=== PATIENT | female | born 1985 | race Caucasian/White ===

== ENCOUNTER 2019-10-18 22:09 | Inpatient (IN) | payer BC, OTHER ==
[~2019-10-18] VITALS: Ht 172.7 cm; Wt 123.3 kg
[2019-10-18] MEDS: IV NORMAL SALINE 1,000ML 1,000 ML IV SCH (00:03)
[2019-10-18] MEDS ORDERED: IV NORMAL SALINE 50ML 50 ML ONE (23:05)
[2019-10-18] MEDS ORDERED: cefTRIAXone SODIUM 1 GM VIAL ONE (23:05)
[2019-10-19] VITALS (19 sets, daily range): BP systolic 89–160; BP diastolic 58–98
[2019-10-19] MEDS ORDERED: KETOROLAC 30 MG/ML VIAL. ONE
[2019-10-19] MEDS ORDERED: KETOROLAC 30 MG/ML VIAL. IVP ONE
[2019-10-19 00:28] LABS: BASO % 0 % (0-3); EOS % 0 % (0-3); HEMATOCRIT 38.2 % (36.0-47.0); HEMOGLOBIN 12.6 g/dL (12.0-15.5); LYMPH # 1.1 x10^3/uL (1.0-4.8); LYMPH % 8 % (24-48); MEAN CORPUSCULAR HEMOGLOBIN 30 pg (25-35); MEAN CORPUSCULAR HGB CONC 33 g/dL (31-37); MEAN CORPUSCULAR VOLUME 91 fL (79-100); MONO % 7 % (0-9); NEUT # 11.4 x10^3uL (1.8-7.7); NEUT % 84 % (31-73); PLATELET COUNT 188 x10^3/uL (140-400); RED CELL DISTRIBUTION WIDTH 12.8 % (11.5-14.5); WHITE BLOOD COUNT 13.5 x10^3/uL (4.0-11.0)
[2019-10-19 00:41] LABS: BILIRUBIN,URINE NEG (NEG); CALCIUM 8.8 mg/dL (8.5-10.1); CLARITY,URINE CLOUDY; COLOR,URINE BROWN; GFR 63.1; GLUCOSE,URINE NEG (NEG); POTASSIUM 3.7 mmol/L (3.5-5.1)
[2019-10-19 00:42] LABS: BACTERIA,URINE FEW /HPF (0-FEW); NITRITE,URINE POS (NEG); RBC,URINE TNTC /HPF (0-2); SQUAMOUS EPITHELIAL CELL,UR FEW /LPF
[2019-10-19 00:52] LABS: ALBUMIN 3.1 g/dL (3.4-5.0); DIRECT BILIRUBIN 0.4 mg/dL (0.0-0.2); TOTAL BILIRUBIN 0.9 mg/dL (0.2-1.0); TOTAL PROTEIN 7.9 g/dL (6.4-8.2)
[2019-10-19] MEDS ORDERED: LIDOCAINE (700MG/PATCH) PATCH. TD ONE (01:00)
[2019-10-19] MEDS ORDERED: CYCLOBENZAPRINE 10 MG TABLET. PO ONE (01:00)
[2019-10-19] MEDS: IV NORMAL SALINE 1,000ML 1,000 ML IV SCH ×4 (01:10→12:23)
--- NOTE | 2019-10-19 01:32 | PHYS DOC ---
Past History Past Medical History: No Pertinent History Past Surgical History: Other Additional Past Surgical Histo: right ovarian mass removal Alcohol Use: None General Adult EDM: Chief Complaint: ABDOMINAL PAIN HPI: HPI: 34 yo F who denies PMH presents to the ed with c/o right flank pain, painful urination, blood in urine, fever and body aches stating, "I don't feel good." Left [facility] ER AMA because "I don't want to be admitted there." Was tested for covid at [place]-denies any cough or sore throat to me. ROS: Denies associated headache, neck stiffness, diaphoresis, blurry vision, chest pain or pressure, dyspnea, hemoptysis, diarrhea, abdominal pain, vaginal bleeding, leg swelling, rash, diarrhea. Current Medications: Current Meds: Current Medications Medications (Trade) Dose Ordered Sig/Joanie Start Time Stop Time Status Last Admin Dose Admin Ceftriaxone Sodium 1 gm/ Sodium Chloride 50 ml @ 100 mls/hr 1X ONCE 10/18/19 23:00 10/18/19 23:29 DC 10/18/19 00:03 100 MLS/HR Ceftriaxone Sodium (Rocephin) 1 gm STK-MED ONCE 10/18/19 23:05 10/18/19 23:05 DC Cyclobenzaprine HCl (Flexeril) 5 mg 1X ONCE 10/19/19 01:00 10/19/19 01:01 DC 10/19/19 01:09 5 MG Ketorolac Tromethamine (Toradol 30mg Vial) 30 mg STK-MED ONCE 10/19/19 00:00 10/19/19 00:01 DC Lidocaine (Lidoderm) 1 patch 1X ONCE 10/19/19 01:00 10/19/19 01:01 DC 10/19/19 01:09 1 PATCH Sodium Chloride 50 ml @ As Directed STK-MED ONCE 10/18/19 23:05 10/18/19 23:05 DC Allergies: Allergies: Allergies Coded Allergies Type Severity Reaction Last Updated Verified No Known Drug Allergies 10/18/19 No Physical Exam: PE: Constitutional: febrile, uncomfortable appearing, febrile, obese HENT: Normocephalic, atraumatic, Eyes: EOMI, conjunctiva normal, no discharge. [] Neck: Normal range of motion, no tenderness, supple, no stridor. [] Cardiovascular: tachycardic, no murmur [] Lungs & Thorax: Bilateral breath sounds clear to auscultation [] Abdomen: Bowel sounds normal, soft, no tenderness, no masses, no pulsatile masses. [] Skin: Warm, dry, no erythema, no rash. [] Back: No tenderness, +right CVA tenderness. [] Extremities: No tenderness, no cyanosis, no clubbing, ROM intact, no edema. [] sclerosis to both UEs-suspect IVDU Neurologic: Alert and oriented X 3, normal motor function, normal sensory function, no focal deficits noted. [] Psychologic: Affect normal, judgement normal, mood normal. [] Current Patient Data: Labs: Laboratory Tests Test 10/18/19 23:55 White Blood Count 13.5 x10^3/uL (4.0-11.0) H Red Blood Count 4.20 x10^6/uL (3.50-5.40) Hemoglobin 12.6 g/dL (12.0-15.5) Hematocrit 38.2 % (36.0-47.0) Mean Corpuscular Volume 91 fL (79-100) Mean Corpuscular Hemoglobin 30 pg (25-35) Mean Corpuscular Hemoglobin Concent 33 g/dL (31-37) Red Cell Distribution Width 12.8 % (11.5-14.5) Platelet Count 188 x10^3/uL (140-400) Neutrophils (%) (Auto) 84 % (31-73) H Lymphocytes (%) (Auto) 8 % (24-48) L Monocytes (%) (Auto) 7 % (0-9) Eosinophils (%) (Auto) 0 % (0-3) Basophils (%) (Auto) 0 % (0-3) Neutrophils # (Auto) 11.4 x10^3uL (1.8-7.7) H Lymphocytes # (Auto) 1.1 x10^3/uL (1.0-4.8) Monocytes # (Auto) 1.0 x10^3/uL (0.0-1.1) Eosinophils # (Auto) 0.0 x10^3/uL (0.0-0.7) Basophils # (Auto) 0.0 x10^3/uL (0.0-0.2) Urine Collection Type Unknown Urine Color Brown Urine Clarity Cloudy Urine pH 5.5 Urine Specific [place] 1.025 Urine Protein >100 mg/dl (NEG-TRACE) Urine Glucose (UA) Neg mg/dL (NEG) Urine Ketones (Stick) >=160 mg/dL (NEG) Urine Blood Large (NEG) Urine Nitrite Pos (NEG) Urine Bilirubin Neg (NEG) Urine Urobilinogen Dipstick 1.0 mg/dL (0.2 mg/dL) Urine Leukocyte Esterase Neg (NEG) Urine RBC Tntc /HPF (0-2) Urine WBC 5-10 /HPF (0-4) Urine Squamous Epithelial Cells Few /LPF Urine Bacteria Few /HPF (0-FEW) Sodium Level 129 mmol/L (136-145) L Potassium Level 3.7 mmol/L (3.5-5.1) Chloride Level 94 mmol/L (98-107) L Carbon Dioxide Level 23 mmol/L (21-32) Anion Gap 12 (6-14) Blood Urea Nitrogen 10 mg/dL (7-20) Creatinine 1.0 mg/dL (0.6-1.0) Estimated GFR (Cockcroft-Gault) 63.1 Glucose Level 91 mg/dL (70-99) Lactic Acid Level 1.0 mmol/L (0.4-2.0) Calcium Level 8.8 mg/dL (8.5-10.1) Total Bilirubin 0.9 mg/dL (0.2-1.0) Direct Bilirubin 0.4 mg/dL (0.0-0.2) H Aspartate Amino Transferase (AST) 21 U/L (15-37) Alanine Aminotransferase (ALT) 27 U/L (14-59) Alkaline Phosphatase 74 U/L (46-116) Troponin I Quantitative < 0.017 ng/mL (0-0.055) Total Protein 7.9 g/dL (6.4-8.2) Albumin 3.1 g/dL (3.4-5.0) L Lipase 34 U/L (73-393) L Ethyl Alcohol Level < 10 mg/dL (0-10) Vital Signs: Vital Signs Date Time Temp Pulse Resp B/P (MAP) Pulse Ox O2 Delivery O2 Flow Rate FiO2 10/18/19 22:23 103.0 124 28 133/ 92 Room Air EKG: EKG: [] Radiology/Procedures: Radiology/Procedures: [] Course & Med Decision Making: Course & Med Decision Making Pertinent Labs and Imaging studies reviewed. (See chart for details) Presents to the ED tachycardic and febrile with nitrate positive UTI, concern for sepsis secondary to UTI. Labs show leukocytosis of 13.5, sodium of 129. I reviewed patient images that were performed at [facility] earlier today. Patient had a transvaginal pelvic ultrasound that showed a left ovarian complex cyst, intact blood flow. Patient had a CT abdomen pelvis with contrast that shows mild biliary dilatation of 12 mm. Urine drug screen was positive for marijuana, opioids and amphetamine methamphetamines. Patient states she did not want to be admitted at [facility] but agrees with admission for [place]. Pt started on abx, ivfs and analgesia, is stable at time of admission. I have spoken with the patient and/or caregivers. I have explained the patient's condition, diagnosis and treatment plan based on the information available to me at this time. I have answered the patient's and/or caregivers questions and answered any concerns. The patient and/or caregivers have as good an understanding of the patient's diagnosis, condition and treatment plan as can be expected at this point. The patient has been stabilized within the capability of the emergency department. The patient will be transported for further care and management or will be moved to an observation or inpatient service. I have communicated with the staff or medical practitioner taking over this patient's care. Arlen Disclaimer: Arlen Disclaimer: This electronic medical record was generated, in whole or in part, using a voice recognition dictation system. Departure Departure: Impression: Primary Impression: Sepsis secondary to UTI Additional Impression: Polysubstance abuse Disposition: ADMITTED INPATIENT Admitting Physician: Ryley Britt Condition: STABLE Referrals: PCP,NO (PCP) Justification of Admission: Justification of Admission: Justification of Admission Dx: Yes Sepsis: Infection KIKA BRAGA DO Oct 19, 2019 01:32
[2019-10-19 01:56] LABS: BARBITURATES NEG (NEG); BENZODIAZEPINES NEG (NEG); CANNABINOIDS POS (NEG); COCAINE NEG (NEG); METHADONE NEG (NEG); OPIATES POS (NEG); PHENCYCLIDINE NEG (NEG)
[2019-10-19 01:58] LABS: AMPHETAMINE/METHAMPHETAMINE POS (NEG)
[2019-10-19] MEDS ORDERED: ONDANSETRON PF 4 MG/2 ML VIAL. IVP PRN (02:00)
[2019-10-19] MEDS ORDERED: NO HOME MEDICATIONS (03:14)
--- NOTE | 2019-10-19 03:34 | NUR ---
The patient, KATHERINE SMITH, 34 y/o, F admitted by DORENE ALVARADO MD, was given written information regarding hospital policies, unit procedures and contact persons. Valuables were checked and noted. PT's purse and clothing placed in outer closet. PT given her cell phone in room. PT placed on telemetry, changed gown to appropriate gown. PT states she has been having increasing pain that started in the abdomen and progressed to her low back. PT has chronic back pain and states she uses IV heroin and meth for pain control. Per PT, last used one week ago. PT had presented to [facility] yesterday for same problem, swabbed for COVID and left AMA. Reviewed with PT her PMH, PSH, SH, FH and medications. PT states she has no PMH and takes no medications. PT's only surgery was a RT ovarian masses excision. PT has no children and lives with her mother. PT was anxious and depressed at assessment but cooperative.
[2019-10-19] MEDS: MORPHINE SULFATE 2 MG/ML DISP.SYRIN. IVP PRN ×6 (03:53→22:51)
[2019-10-19] MEDS ORDERED: ACETAMINOPHEN 500 MG TABLET PO ONE (08:05)
[2019-10-19] MEDS: ACETAMINOPHEN 500 MG TABLET PO PRN ×2 (08:10→22:55)
--- NOTE | 2019-10-19 08:12 | NUR ---
IP: patient PUI for COVID-19, requires contact and airborne precautions.
--- NOTE | 2019-10-19 08:30 | NUR ---
On arrival to pt room pt is lethargic and barely able to speak full sentences. PT temp 103, HR 125. Fluids infusing. PT given tylenol, zofran, morphine. Dr Britt notified of change in pt status on his arrival to unit. Juani TIRADO
--- NOTE | 2019-10-19 08:48 | HP ---
ADMIT DATE: 10/19/2019 ATTENDING PHYSICIAN: Dr. Alvarado. CHIEF COMPLAINT: Abdominal pain. HISTORY OF PRESENT ILLNESS: The patient is a 34-year-old white female who was admitted to the ED, she had a diagnosis of pyelonephritis. Her symptoms were right flank pain, painful urination, blood in the urine, fevers and body aches saying "I don't feel good." She was seen in the [facility] the same day. She left the ER AMA because she did not want to be admitted there. She was tested for COVID at [facility]. She denied any cough or COVID symptoms. I do not have those records. I am in the process of tracking them down. Also, cultures were done at [facility] and there are no reports. They are at [facility]. She is admitted then early this morning through our ED, she was going to stay here. She was admitted with urinary tract infection and sepsis syndrome. Her blood pressure was adequate. She appeared a bit on the dry side. Fluids and antibiotics were administered. She was given Rocephin along with fluids in the ED. She has no recorded drug allergies. PAST MEDICAL HISTORY: She had a right ovarian cyst removed. SOCIAL HISTORY: She is a smoker. She does not use any alcohol. There is a substance abuse as her urine tested positive for opiates, methamphetamine and tetrahydrocannabinol. FAMILY HISTORY: Mom is age 60. She has a form of brain tumor, whether this is benign or malignant she is unclear. Father also with a diagnosis of spinal tumor. He is alive at age 62. ALLERGIES: She has no recorded drug allergies. REVIEW OF SYSTEMS: Significant for the myalgias, headache, neck stiffness, diaphoresis, minimal dry and nonproductive cough, blurry vision, chest pain after cough, some hemoptysis, diarrhea, abdominal pain, vaginal bleeding, leg swelling and the diarrhea. PHYSICAL EXAMINATION: GENERAL: When I saw her, this is a young female who does not appear comfortable. INITIAL VITAL SIGNS: In the ED showed a blood pressure of 104/65, her pulse is 104 and regular, temperature max was 103.0 degrees Fahrenheit, oxygen saturation 95% on room air. HEENT: Head is without trauma. Pupils are reactive. Sclerae nonicteric. Oropharynx is clear. NECK: Supple, no bruits identified. LUNGS: Coarse rhonchi in the upper airways. CARDIOVASCULAR: Showed distant heart tones. No gallops. Peripheral pulses are palpable and full. ABDOMEN: Soft, obese, protuberant. Minimal guarding. There is no rebound tenderness. No masses palpated. Bowel sounds were hypoactive. EXTREMITIES: Show no cyanosis or edema. NEUROLOGIC: Focally intact. Affect was flat. SKIN: Warm and dry. PERTINENT LABORATORY STUDIES: From our ED, hemoglobin was 12.6 g/dL with white count of 13,500. Sodium 129 mEq, potassium 3.7. The creatinine is 1.0 mg/dL. Transaminases and liver function were normal. Cardiac enzymes negative and the lactic acid level was 1.0, once again cultures from [facility] ED were done, but I do not have any reports yet. ASSESSMENT: 1. A 34-year-old female with pyelonephritis. 2. Sepsis syndrome. 3. Polysubstance abuse. 4. History of ovarian resection. 5. Dehydration. PLAN: 1. Admit to our inpatient unit. 2. Intravenous antibiotics pending cultures. 3. Pain and nausea control. 4. Gentle IV hydration. 5. Serial chemistries. 6. Diet as tolerated. 7. I shall repeat her chest x-ray today. DORENE ALVARADO MD DR: NICK/laisha JOB#: [id number] / [id number]
--- NOTE | 2019-10-19 09:35 | NUR ---
pt reported trying to get up to go to the bathroom and unable to being able to make it the bathroom and voided on the floor. Educated patient that she must call for assistance when getting up and bed alarm placed on. PT temp coming down, however, pt still increased work of breathing and profuse perspiration. PT has ice pack behind neck and temp turned down in room. 2nd IV placed 22g in R hand. PT has wheezes all lung with coarse breath sound Anteriorly. DR Britt notified. Juani RN
[2019-10-19] MEDS ORDERED: ALBUTEROL SULFATE 8GM INHALER. INH PRN (10:00)
--- NOTE | 2019-10-19 10:13 | RAD ---
CHEST AP ONLY Clinical Indication: Reason: wheezing shortness of breath / Spl. Instructions: / History: Comparison: Acute abdominal series, February 15, 2011. Findings: The cardiomediastinal silhouette is normal. Lungs are clear. There is no pneumothorax. No pleural effusion is appreciated. No acute bone abnormality. IMPRESSION: No acute cardiopulmonary process. Electronically signed by: Farhad Gilbert MD (10/19/2019 10:11 AM) [id number]
--- NOTE | 2019-10-19 10:36 | NUR ---
pt hypotensive Dr Britt Notified he said to bolus a liter. PT still lethargic. BGzhane RN
[2019-10-19] MEDS ORDERED: IV NORMAL SALINE 1,000ML 1,000 ML IV ONE (10:45)
--- NOTE | 2019-10-19 11:12 | NUR ---
PT continues to be lethargic and profusely sweating even though temp 99.9. Bp continues to be hypotensive even after saline bolus. Dr Notified of condition. Dr Britt did talk about possible transfer to ICU for closer monitoring. Juani TIRADO
[2019-10-19] MEDS: CYCLOBENZAPRINE 10 MG TABLET. PO PRN ×2 (11:50→19:41)
--- NOTE | 2019-10-19 15:16 | NUR ---
PT becoming agitated and asking for pain medication stating my "fucking back hurts", when trying to question pt further about radiation of pain she just keeping saying she needs pain medications. PT bp still in the 90's map low 70s. Juani RN
[2019-10-19] MEDS ORDERED: VANCOMYCIN 1 GM in IV NORMAL SALINE 250ML 250 ML IV SCH (17:30)
--- NOTE | 2019-10-19 18:00 | NUR ---
PT drowsy and was able to ambulate, however still having pain. PT having lots of pain in her chest at times and back. PT moved to ICU for closes monitoring. Juani TIRADO
[2019-10-19] MEDS ORDERED: VANCOMYCIN PER PHARMACY MC PRN (18:15)
[2019-10-19] MEDS: PIPERACILLIN/TAZOBACTAM 4.5 GM in IV NORMAL SALINE 50ML 50 ML IV SCH ×2 (18:56→23:38)
[2019-10-19] MEDS ORDERED: VANCOMYCIN 2 GM in IV NORMAL SALINE 500ML 500 ML IV ONE (19:00)
[2019-10-19] MEDS ORDERED: LORazepam 1 MG TABLET PO PRN (19:30)
[2019-10-19] MEDS: LORazepam 1 MG TABLET PO PRN (19:41)
--- NOTE | 2019-10-19 20:45 | NUR ---
Pharmacy Vancomycin Dosing Note S:Consulted to monitor and dose vancomycin started 10/19/19. O:KATHERINE SMITH is a 34 year old F with Sepsis Pyelonephritis, . Height: 5 feet, 8 inches Weight: 119.0 kg [place] Body Weight: 63.90 Adjusted Body Weight: 85.94 Dosing Weight: Actual Other Antibiotics: ZOSYN 4.5GM IV Q6HRS LABS: Last BUN: 10 Last Creatinine: 1.0 Creatinine Clearance: 106.53 Last WBC: 13.5 Vancomycin Dosing: Loading Dose: 2000 mg x1 Dosing Weight: Actual Target Trough: 15-20 A: Based on: Actual weight, renal function and indication P: 1. Begin Vancomycin 1500 mg IV q8h 2. Follow up Trough level on 10/20/19 at 1930 3. Pharmacy will continue to monitor, follow and adjust therapy as needed. DENICE PECK, 10/19/19 [id number]
[2019-10-20] VITALS (22 sets, daily range): BP systolic 120–158; BP diastolic 68–110
--- NOTE | 2019-10-20 01:43 | NUR ---
Pt awake, but lethargic. Very drowsy at various times throughout the day for no known reason. Purse had not been searched on admission; so, it was searched at this time. A pouch containing numerous unpackaged insulin syringes, cigarettes, locomotive engineer electric, knives were found in the purse. Pt was informed that purse and its contents would be locked up in the hospital safe until she discharges from the hospital. Pt was agreeable to plan.
[2019-10-20] MEDS: LORazepam 1 MG TABLET PO PRN (02:04)
[2019-10-20] MEDS: CYCLOBENZAPRINE 10 MG TABLET. PO PRN ×3 (02:04→23:17)
[2019-10-20] MEDS: VANCOMYCIN 1.5 GM in IV NORMAL SALINE 500ML 500 ML IV SCH ×3 (03:30→21:04)
--- NOTE | 2019-10-20 05:26 | NUR ---
Shift Note: Pt is a/o x4, lethargic, verbally aggressive using foul language toward staff, VSS at this time, pt on 2 liters oxygen via NC (temp during night of 101F, tylenol given, 97.1), pt incontinent of urine several times during night (able to get up this am and use BSC, urine bright red blood in color w/foul odor), pt has had 4 liters of IV fluid by this time w/the fifth liter infusing, IV antibiotics given as ordered, pt's purse is in secured cabinet (see previous note by supervisor malt house).
[2019-10-20] MEDS: PIPERACILLIN/TAZOBACTAM 4.5 GM in IV NORMAL SALINE 50ML 50 ML IV SCH ×4 (05:35→23:19)
[2019-10-20] MEDS: MORPHINE SULFATE 4 MG/ML DISP.SYRIN. IV PRN ×6 (06:06→23:51)
--- NOTE | 2019-10-20 10:13 | PN ---
DATE: 10/20/2019 ATTENDING PHYSICIAN: Dr. Dorene Alvarado. CHIEF COMPLAINT: Abdominal pain. SUBJECTIVE: The patient is very sleepy. She got a big dose of Ativan last night from the CIWA protocol. I have since discontinued the CIWA protocol. OBJECTIVE FINDINGS: The 06/12 blood cultures were positive for gram-positive cocci. I called the laboratory. The identification and sensitivity of the bacteria will be available tomorrow. Currently, she is on good broad-spectrum coverage with vancomycin and Zosyn. VITAL SIGNS: Her blood pressure today is improved to 135/96 mmHg, pulse is 98 and regular, temperature 98.2 degrees Fahrenheit, oxygen saturation 98% on 2 liters nasal cannula. HEENT: Head is without trauma. Pupils are reactive. Sclerae nonicteric. The oropharynx is clear. NECK: Supple, no bruits identified. LUNGS: Shallow respirations, otherwise good air movement. CARDIOVASCULAR: Showed regular heart tones. No gallops. Peripheral pulses are palpable and full. ABDOMEN: Soft, nontender, no organomegaly. Bowel sounds are hypoactive. EXTREMITIES: Showed no cyanosis or edema. NEUROLOGIC: The patient is sleepy, but arousable. Chem B is pending. ASSESSMENT: 1. A 34-year-old female with pyelonephritis. 2. Gram- positive septicemia. 3. Polysubstance abuse. 4. History of ovarian resection. 5. Dehydration. 6. Obtundation due to Ativan. PLAN: 1. Continue antibiotics as ordered. 2. IV hydration. 3. Diet as tolerated. 4. Pain control. 5. I have discontinued the Ativan and the CIWA protocol, she does not need at this time. 6. Follow up chemistries and blood work. We will await for the ID and sensitivity of her blood cultures. DORENE ALVARADO MD DR: NICK/laisha JOB#: [id number] / [id number]
[2019-10-20] MEDS ORDERED: FLUMAZENIL 0.5 MG/5 ML VIAL. IV STA (15:05)
--- NOTE | 2019-10-20 18:23 | NUR ---
Pt. remained lethargic throughout the day and was more awake after the administration of Romazicon. Still cursing and requiring frequent bathroom visits.
[2019-10-20] MEDS: IV NORMAL SALINE 1,000ML 1,000 ML IV SCH (21:04)
--- NOTE | 2019-10-20 21:20 | NUR ---
Pt verbally aggressive and cussing at staff, pt impulsive and getting out of bed w/o help and w/o using call light, pt taking off monitors, pt incontinent of urine at this time (two previous times pt used BSC w/o difficulty), pt asking for more pain medications, pt insisting she gets her purse back (explained to pt it would be returned at the time of discharge, pt states "OK"), will continue to monitor.
--- NOTE | 2019-10-20 22:30 | NUR ---
Physician call to notify of elevated BP, no new orders received
[2019-10-21] VITALS (22 sets, daily range): BP systolic 114–166; BP diastolic 85–113
[2019-10-21] MEDS: IV NORMAL SALINE 1,000ML 1,000 ML IV SCH ×2 (01:20→14:40)
[2019-10-21] MEDS: MORPHINE SULFATE 4 MG/ML DISP.SYRIN. IV PRN ×6 (03:07→22:02)
[2019-10-21 03:33] LABS: BASO % 0 % (0-3); EOS % 0 % (0-3); HEMATOCRIT 33.3 % (36.0-47.0); HEMOGLOBIN 11.4 g/dL (12.0-15.5); LYMPH # 1.3 x10^3/uL (1.0-4.8); LYMPH % 16 % (24-48); MEAN CORPUSCULAR HEMOGLOBIN 30 pg (25-35); MEAN CORPUSCULAR HGB CONC 34 g/dL (31-37); MEAN CORPUSCULAR VOLUME 88 fL (79-100); MONO # 0.9 x10^3/uL (0.0-1.1); MONO % 11 % (0-9); NEUT # 6.1 x10^3uL (1.8-7.7); NEUT % 73 % (31-73); PLATELET COUNT 169 x10^3/uL (140-400); RED BLOOD COUNT 3.77 x10^6/uL (3.50-5.40); RED CELL DISTRIBUTION WIDTH 12.4 % (11.5-14.5); WHITE BLOOD COUNT 8.4 x10^3/uL (4.0-11.0)
[2019-10-21 03:58] LABS: CALCIUM 7.7 mg/dL (8.5-10.1); CREATININE 0.6 mg/dL (0.6-1.0); GFR 113.8; POTASSIUM 3.2 mmol/L (3.5-5.1)
[2019-10-21 04:07] LABS: VANC TR 10.3 mcg/mL (10.0-20.0)
[2019-10-21] MEDS: VANCOMYCIN 1.5 GM in IV NORMAL SALINE 500ML 500 ML IV SCH (04:20)
[2019-10-21] MEDS: CYCLOBENZAPRINE 10 MG TABLET. PO PRN ×2 (05:20→13:15)
[2019-10-21] MEDS: PIPERACILLIN/TAZOBACTAM 4.5 GM in IV NORMAL SALINE 50ML 50 ML IV SCH ×4 (06:08→23:30)
--- NOTE | 2019-10-21 06:29 | RAD ---
AP chest x-ray HISTORY: Wheezing, chest pain shortness of breath. COMPARISON: Chest x-ray October 19, 2019 FINDINGS: Heart size stable. Mediastinum unremarkable. Indistinct densities at the lung bases likely summation of the overlying chest wall tissues although underlying lower lobe airspace disease is difficult to exclude in this setting. No consolidation. No pneumothorax or pleural effusions. Bones unremarkable. IMPRESSION: Indistinct densities at the lung bases likely due to the overlying chest wall tissues, underlying lower lobe airspace disease is not excluded. Electronically signed by: Gareth Burr MD (10/21/2019 6:26 AM) [facility]
[2019-10-21] MEDS ORDERED: POTASSIUM CHLORIDE 20 MEQ TABLET.ER. PO ONE (07:30)
[2019-10-21] MEDS ORDERED: IPRATRPIUM/ALBUTEROL 0.5/2.5MG 3 ML NEBU. NEB PRN (10:15)
[2019-10-21] MEDS ORDERED: VANCOMYCIN 1.75 GM in IV NORMAL SALINE 500ML 500 ML IV SCH (12:00)
[2019-10-21] MEDS: ACETAMINOPHEN 500 MG TABLET PO PRN (14:51)
[2019-10-21] MEDS ORDERED: METHOCARBAMOL 500 MG TABLET PO PRN (17:00)
--- NOTE | 2019-10-21 17:31 | RAD ---
EXAM: CT Lumbar Spine without IV contrast INDICATION: Reason: positive blood cultures and severe back pain / Spl. Instructions: please scan the sacral area / History: TECHNIQUE: Multi-detector row CT images were obtained through the lumbar spine without the use of IV contrast. Post-processing sagittal and coronal reconstructed images were obtained for interpretation. All CT scans performed at this facility utilize dose optimization techniques as appropriate to the exam, including the following: Automated exposure control and adjustment of the mA and/or KV according to patient size (this includes techniques or standardized protocols for targeted exams where dose is indication/reason for exam). COMPARISON: CT abdomen and pelvis with IV contrast of 12/13/2008, L-spine x-rays of 08/13/2012. FINDINGS: The lowest fully formed disc is referred to as the L5-S1 level. ALIGNMENT: Alignment is within normal limits. OSSEOUS: L5 is a transitional vertebra, partially sacralized on the right. The vertebral body heights are preserved and, superimposed on generalized demineralization, is subchondral sclerosis at L4-L5 with minimal endplate irregularity at L4, new from the previous CT. The available L-spine x-ray images are oblique images where the disc spaces are not viewed in profile but similar degenerative changes are not as apparent on that study from 2013 either. There is also asymmetric lucency at the lateral superior left L4 endplate that is also new from the previous CT. DISC SPACES: Narrowing at L4-L5 and to a slightly lesser extent, L5-S1. FACET JOINTS: Unremarkable. SPINAL CANAL: Unremarkable. NEUROFORAMINA: Mild foraminal narrowing most notably at L4-L5 due to endplate degenerative changes and disc loss of height. SOFT TISSUES: There is exuberant retroperitoneal soft tissue edema and stranding tracking all the way into the presacral space in the pelvis. No organized fluid collection is identified. No abnormal gas collection. A Casillas catheter decompresses the urinary bladder. A left multiloculated adnexal cystic mass is present, similar to previous CT but with multiple loculations now present, where previously it seems to be a simple unilocular cystic structure. IMPRESSION: 1. Findings of degenerative change most conspicuous at L4-L5 and possibly early similar changes at L3-L4. Superimposed infection is not confidently excluded on CT alone and MRI could be helpful in further evaluation of any early changes of discitis osteomyelitis and for the possible presence of an epidural abscess if clinically suspected. 2. Exuberant retroperitoneal soft tissue stranding noted in setting of a multiloculated left adnexal cystic mass. Etiology is uncertain with differential considerations including pyelonephritis tubo-ovarian complex. Discussed with Dr. Mehta by telephone at 5:24 PM on 10/21/2019 Electronically signed by: Chon Peck MD (10/21/2019 5:28 PM) [id number]
[2019-10-21] MEDS ORDERED: NALOXEGOL OXALATE 25 MG TABLET. PO PRN (17:45)
[2019-10-21] MEDS ORDERED: PHENAZOPYRIDINE 100 MG TABLET. PO PRN (17:45)
[2019-10-21] MEDS ORDERED: BISACODYL TAB 5 MG TABLET.DR. PO PRN (17:45)
--- NOTE | 2019-10-21 18:51 | NUR ---
Pt continues to be lethargic and refusing to get out of bed due to pain. Pt incontinent and unable to hold urine. Casillas placed for accurate I and O's. Urine clear pt appear to be bleeding vaginally. PT reported Severe back pain and abd pain to DR Mehta. PT did go to CT and was unable to move from bed to table on own. Will continue monitor.Pt continues to request pain medication as soon as she can get it. Juani TIRADO
--- NOTE | 2019-10-21 18:55 | PN ---
DATE: 10/21/2019 SUBJECTIVE: The patient is a 34-year-old female patient who was apparently seen initially at [facility] where she was extensively investigated. She apparently was diagnosed with pyelonephritis. Her symptoms were right flank pain, painful urination, blood in the urine, fever and body aches and she left against medical advice because she does not want to be admitted there. She was tested for COVID at [place] and was negative. She had had urine and blood culture at [facility] that were also repeated here at [facility] and [facility] and both showed that she grew Gram-positive cocci in clusters in 4/4 bottles, diagnosed as methicillin-sensitive Staphylococcus aureus as well as urine culture growing E. coli and was basically started on IV Rocephin initially, but then switched to Zosyn and vancomycin. Unfortunately, the patient continued to complain of severe back pain and that is aggravated by any movement, even changing her position in the bed and given the fact that she had Staphylococcus bacteremia, I am really concerned about the possibility of osteomyelitis, diskitis and spinal epidural abscess and therefore, I have arranged for her to have CT scan of the lumbosacral spine. The patient, however, denied any radiation of the pain, pain to her legs. Denied any difficulty controlling her bowel or bladder. PHYSICAL EXAMINATION: GENERAL: When I examined her this afternoon, she was resting slightly propped up in bed, no apparent distress. There is no pallor, jaundice, cyanosis or thyromegaly. No jugular venous distention. No limb edema. VITAL SIGNS: Her heart rate was 97, blood pressure was 136/88, temperature was 98.4, respiratory rate was 15 and oxygen saturation was 95%. HEAD, EYSES, EARS, NOSE AND THROAT: Showed normocephalic, atraumatic. NECK: Supple. HEART: Showed normal first and second heart sounds. No gallop, rub or murmur. CHEST: Clear to auscultation. No crepitation or rhonchi. ABDOMEN: Distended, soft, mild diffuse tenderness. NEUROLOGIC: She is awake, alert, responding appropriately. All her cranial nerves are intact. She moves upper extremities without difficulty. She is able to move her lower extremities with __. She has an indwelling Casillas catheter. She has tenderness in her lumbosacral area. Her intake over the last 24 hours was 3930, output was 2600. LABORATORY DATA: As of this morning, her white cell count is down to 8400, hemoglobin 11.4, hematocrit 33, MCV 88, and platelet count of 169,000. Her chemistry showed a serum sodium 135, potassium 3.2, chloride 100, bicarbonate 21, anion gap of 14, BUN 5, creatinine 0.6, estimated GFR was 113 mL per minute. Her glucose was 87 and calcium was 7.7. ASSESSMENT: In summary, this is a 34-year-old female patient who was drug addict with a history of heroin abuse. She has Gram-positive bacteremia with cultures of gram-positive cocci in clusters in 06/12 identified as methicillin-sensitive Staphylococcus aureus. Her urine culture has grown Escherichia coli. PLAN: My plan is to continue with IV antibiotic. Continue with pain management. I will arrange for her to have a CT scan of the lumbosacral spine and if that is unrevealing probably a bone scan to rule out the possibility of osteomyelitis versus diskitis. OSIRIS HOLLAND MD DR: NELLA/laisha JOB#: [id number] / [id number]
[2019-10-21] MEDS: LACTOBACILLUS RHAMNOSUS GG 1 CAPSULE. PO SCH (20:42)
[2019-10-22] VITALS (20 sets, daily range): BP systolic 122–182; BP diastolic 78–115
[2019-10-22] MEDS: MORPHINE SULFATE 4 MG/ML DISP.SYRIN. IV PRN ×5 (01:02→14:37)
[2019-10-22] MEDS: ACETAMINOPHEN 500 MG TABLET PO PRN (03:20)
--- NOTE | 2019-10-22 03:25 | NUR ---
Pt states that the Robaxin is not working for pain and the Flexeril worked much better and wants that switched back if possible. Also, pt wants something for sleep as she is not able to any rest. Advised we would discuss this with Dr. Mehta in am, pt agrees with plan.
[2019-10-22] MEDS: IV NORMAL SALINE 1,000ML 1,000 ML IV SCH (04:05)
[2019-10-22] MEDS: PIPERACILLIN/TAZOBACTAM 4.5 GM in IV NORMAL SALINE 50ML 50 ML IV SCH ×3 (05:30→18:00)
[2019-10-22 06:23] LABS: HEMATOCRIT 31.1 % (36.0-47.0); HEMOGLOBIN 10.6 g/dL (12.0-15.5); RED BLOOD COUNT 3.53 x10^6/uL (3.50-5.40); RED CELL DISTRIBUTION WIDTH 12.6 % (11.5-14.5); WHITE BLOOD COUNT 6.6 x10^3/uL (4.0-11.0)
[2019-10-22 06:40] LABS: ALBUMIN 1.9 g/dL (3.4-5.0); ALBUMIN/GLOBULIN RATIO 0.4 (1.0-1.7); CALCIUM 8.1 mg/dL (8.5-10.1); CREATININE 0.7 mg/dL (0.6-1.0); GFR 95.2; POTASSIUM 3.1 mmol/L (3.5-5.1); TOTAL BILIRUBIN 0.4 mg/dL (0.2-1.0); TOTAL PROTEIN 6.4 g/dL (6.4-8.2)
[2019-10-22] MEDS: LACTOBACILLUS RHAMNOSUS GG 1 CAPSULE. PO SCH ×2 (09:46→20:10)
[2019-10-22] MEDS ORDERED: CARISOPRODOL 350 MG TABLET PO PRN (14:30)
[2019-10-22] MEDS ORDERED: POTASSIUM CL 40MEQ IN 0.9%NACL 1,000 ML IV SCH (15:00)
--- NOTE | 2019-10-22 15:35 | DS ---
DATE OF DISCHARGE: HOSPITAL COURSE: The patient is a 34-year-old female patient who was admitted on 10/19/2019 with a complaint of back pain. She was initially evaluated at the Emergency Room of [facility] and after extensive evaluation, she left against medical advice and came to our facility where she was admitted with diagnosis of acute pyelonephritis and sepsis syndrome. She has also polysubstance abuse and eventually her blood cultures have grown methicillin-resistant Staphylococcus aureus susceptible to linezolid. Her urine culture while at [facility] showed growth of E. coli; however, the patient continued to complain of severe pain mostly in her lower back and we did a CT scan of the lumbosacral spine and the radiologist impression is that the patient has finding of degenerative changes, most conspicuous at L4-L5 and possibly early similar changes at L3-L4. A superimposed infection is not confidently excluded on the CT alone and the MRI could be helpful in further evaluation of any early changes of diskitis, osteomyelitis for the possible presence of an epidural abscess clinically suspected. She has also exuberant retroperitoneal soft tissue stranding noted in the setting of a multiloculated left adnexal cystic mass, etiology is uncertain with differential consideration including pyelonephritis and tubo-ovarian complex and therefore, a decision was made to transfer her back to [facility] to consult the Infectious Disease specialist, barbecue cook as well as neurosurgeon and neurologist if need be. When I saw her today, she was resting, slightly propped up in bed, constantly complaining of pain. PHYSICAL EXAMINATION: GENERAL: When I examined her, she was somewhat pale, but no jaundice, cyanosis or thyromegaly. No jugular venous distention. No limb edema. VITAL SIGNS: Her heart rate was 80, blood pressure was 122/78, temperature was 98.7, respiratory rate was 23, and oxygen saturation was 91% on 2 liters of oxygen. HEAD, EYES, EARS, NOSE AND THROAT: Showed normocephalic, atraumatic. NECK: Supple. HEART: Showed normal first and second heart sounds. No gallop or murmur. CHEST: Clear to auscultation. No crepitation or rhonchi. ABDOMEN: Distended, soft, nontender. NEUROLOGIC: She is awake, alert, responding appropriately. All cranial nerves intact. She moves upper extremities and lower extremities. She denied any problem with her bowel or bladder. She has an indwelling Casillas catheter. However, she has severe pain in the lower lumbar spine. Her intake was 3580. LABORATORY DATA: Her lab work this morning showed her white cell count is down to 6600, hemoglobin 10.6, hematocrit 31, MCV 88, and platelet count of 190,000. Her chemistry showed a serum sodium 139, potassium 3.1, chloride 104, bicarbonate 26, anion gap of 9, BUN 5, creatinine 0.7, estimated GFR was 95 mL per minute. Her glucose was 98, calcium was 8.1. Total bilirubin, AST, ALT, alkaline phosphatase were normal. Total protein was 6.4, albumin was 1.9. Her C-reactive protein was high at 98.3. Urinalysis showed too numerous to count rbc's, 5-10 wbc's. Her toxic screen showed vancomycin trough level was 10. She is positive for opiates, amphetamines, methamphetamine as well as cannabinoids. The patient will be transferred to [facility] with diagnosis of methicillin-resistant Staphylococcus bacteremia, questionable L4-L5 and possibility of L4 degenerative changes with possibly superimposed infection for which an MRI was recommended to exclude the possibility of diskitis or osteomyelitis. She also has exuberant retroperitoneal soft tissue stranding noted in the setting of a multiloculated left adnexal cystic mass, etiology of which is uncertain with consideration for tubo-ovarian complex as well as pyelonephritis. DISCHARGE MEDICATIONS: She was transferred to continue on Soma 350 mg 3 times a day and Zyvox 600 mg IV 12 hourly, bisacodyl 10 mg daily, phenazopyridine 100 mg 3 times a day, albuterol and Atrovent 4 times a day. She is also on morphine sulfate 4 mg IV every 3 hours, piperacillin and tazobactam 4.5 grams IV every 6 hours, acetaminophen 1000 mg every 6 hours. FINAL DISCHARGE DIAGNOSES: Acute pyelonephritis with growth of Escherichia coli from urine culture drawn at [facility], methicillin-resistant Staphylococcus aureus bacteremia with possible L3-L4, L4-L5 diskitis and osteomyelitis. She could possibly also have endocarditis as she is abusing heroin by injecting it. She has hypokalemia, which I will change IV fluid to correct that. OSIRIS HOLLAND MD DR: NELLA/laisha JOB#: [id number] / [id number]
[2019-10-22] MEDS ORDERED: HYDROmorphone PF 2 MG/ML VIAL IV PRN (17:00)
[2019-10-22] MEDS ORDERED: HYDROmorphone PF 1 MG/ML DISP.SYRIN IV PRN (17:00)
--- NOTE | 2019-10-22 20:45 | NUR ---
1919- Pt calling for pain medications, pt informed that she still has 1 hour left till its due again, Pt agitated with that responding with " Am I just supposed to lay here in pain till then?" Pt offered other pain reliving options, and assisted up to chair for position change. 2009-Report called to CELESTINO Valerio at [facility], going to room 263. Reported to Teodoro about pt's belongings in her purse and need to lock it up on arrival. Mildred, Nursing Sup. also called down and spoke with [facility] Nursing Sup about pt's belongings. Pt given 2mg of IV Dilaudid and Zyvox started. Awaiting EMS for transfer. Pt appears more comfortable now with eyes closed. 2039- EMS here to transport pt to [facility], DC packet and paperwork given to EMS. Pt's purse and other belongings given to EMS with the instructions to not given back to pt but to nursing staff r/t needles and knives in purse. Pt moved from bed to rney x4 assist. IV fluids and IV antibiotic still infusing on DC. [place] [facility] by EMS & they have pt's belongings. Call placed to Emely (mother) about transfer, message left.
== END 2019-10-22 20:50 | disposition short-term general hospital (02) | DRG 872 ==
LOC: ER 22:09 → 1 SOUTH 10-19 02:03 → ICU 10-19 18:38
PROVIDERS: ADMIT Internal Medicine; ATTEND Internal Medicine
DX: A41.02 Sepsis due to Methicillin resistant Staphylococcus aureus (principal); F19.20 Other psychoactive substance dependence, uncomplicated; N10 Acute pyelonephritis; M46.26 Osteomyelitis of vertebra, lumbar region; I38 Endocarditis, valve unspecified; M46.46 Discitis, unspecified, lumbar region; E86.0 Dehydration; E87.6 Hypokalemia; Z79.899 Other long term (current) drug therapy; F17.200 Nicotine dependence, unspecified, uncomplicated; B96.20 Unspecified Escherichia coli [E. coli] as the cause of diseases classified elsewhere
CPT/HCPCS: 36415; 71045; 72131; 80048; 80053; 80076; 80202; 80307; 81001; 82947; 83605; 83690; 84484; 85025; 85027; 86140; 87040; 87086; 87205; 87491; 87591; 96361; 96365; 96375; G0480; J0696; J1170; J1885; J2020; J2270; J2405; J2543; J3370; J3490; J7040; J7613; 99285-25; J7030

== ENCOUNTER 2019-10-31 22:34 | Emergency (ER) | payer SELFPAY ==
[~2019-10-31] VITALS: Ht 172.7 cm; Wt 123.0 kg
[~2019-10-31 22:34] MED LIST: NO HOME MEDICATIONS
--- NOTE | 2019-10-31 22:49 | PHYS DOC ---
Past History Past Medical History: No Pertinent History, Abscess, Anxiety, Arthritis, Bronchitis, Kidney Infection, Sciatica, UTI Past Medical History Sepsis, pyleonephritis,spinal abscess, poly sub.abuse. , Past Surgical History: Other Additional Past Surgical Histo: right ovarian mass removal Smoking: Cigarettes Alcohol Use: None Drug Use: Heroin, Opiates General Adult EDM: Chief Complaint: BACK PAIN - NO INJURY HPI: HPI: " I am so fucking stupid... My back is killing me.... I left AMA from [facility].... 2 days ago AMA.. stupid decision..I was worried..I was going to get my car towed or stolen.... They were treating me for sepsis, pyelonephritis, possible spinal abscess.... I left AMA... I was trying to get my car back and prevent it from being stolen... I am so stupid... I ve been off antibiotics for 2 days now... Fever and chills again and hurting worse..in my back...." Patient is a 34 year old female who presents with above history and complaints of lumbar sacral back pain with fever and chills. Patient initially admitted here at [facility] on 10/19/2019 for pyelonephritis, sepsis syndrome, polysubstance abuse, dehydration. Patient eventually transferred to [facility] for MRI to evaluate continued lumbar sacral back pain.Pt.received a MRI to evaluate for osteomyelitis and spinal abscess.. During that admission she did have 4 out of 4 methicillin sensitive staphcoccal blood cultures. Patient also had history of positive E. coli urinary tract infection. Patient localizes her pain in L3-L5 area. Rates pain as 10/10. Movement makes pain worse. At the time she left AMA from [facility] she was receiving Zyvox 600 mg IV every 12 hours. Piperacillin and Tazobactram 4.5 gm IV every 6 hrs. Review of Systems: Review of Systems: Constitutional: Complains of fever or chills Eyes: Denies change in visual acuity HENT: Denies nasal congestion or sore throat Respiratory: Denies cough or shortness of breath Cardiovascular: Denies chest pain or edema GI: Denies abdominal pain, nausea, vomiting, bloody stools or diarrhea : Denies dysuria Musculoskeletal: Complains of lumbar sacral back pain or joint pain Integument: Denies rash Neurologic: Denies headache, focal weakness or sensory changes Endocrine: Denies polyuria or polydipsia Lymphatic: Denies swollen glands Psychiatric: Denies depression or anxiety Heart Score: HEART Score for Chest Pain: HEART Score for Chest Pain Response (Comments) Value History Slighlty/Non-Suspicious 0 ECG Normal 0 Age < 45 0 Risk Factors 1 or 2 Risk Factors 1 Troponin < Normal Limit 0 Total 1 Risk Factors: Risk Factors: DM, Current or recent (<one month) smoker, HTN, HLP, family history of CAD, obesity. Risk Scores: Score 0 - 3: 2.5% MACE over next 6 weeks - Discharge Home Score 4 - 6: 20.3% MACE over next 6 weeks - Admit for Clinical Observation Score 7 - 10: 72.7% MACE over next 6 weeks - Early Invasive Strategies Family History: Family History: Noncontributory Mother is 60 years old and has history of brain tumor Father has a history of a spinal tumor age 62 Current Medications: Current Meds: See nursing for home meds Allergies: Allergies: Allergies Coded Allergies Type Severity Reaction Last Updated Verified I S O L A T I O N *CONTACT* Allergy Unknown 10/28/19 Yes NKMA Allergy Unknown 10/28/19 Yes Physical Exam: PE: Constitutional: in acute distress, ill in appearance. [] HENT: Normocephalic, atraumatic, bilateral external ears normal, oropharynx moist, no oral exudates, nose normal. [] Eyes: PERRLA, EOMI, conjunctiva normal, no discharge. [] Neck: Normal range of motion, no tenderness, supple, no stridor. [] Cardiovascular: Tachycardia heart rate regular rhythm, no murmur [] Lungs & Thorax: Bilateral breath sounds equal apex with scattered wheezes throughout on auscultation [] Abdomen: Bowel sounds normal, soft, no tenderness, no masses, no pulsatile masses. Old surgery scars. Obese. Skin: Warm, diaphoretic, no erythema, no rash. [] Multiple tattoos Back: Lumbar sacral back tenderness, bilateral CVA tenderness on percussion Extremities: No tenderness, no cyanosis, no clubbing, ROM intact, no edema. [] Complains of lower limb weakness Neurologic: Alert and oriented X 3, moves all extremities on request. Has a guarded gait, has distal sensory, DTRs +2 patella bilaterally. Straight leg lift exacerbates pain bilaterally. Psychologic: Affect anxious, judgement normal, mood depressed EKG: EKG: My interpretation of EKG shows a sinus rhythm at 90 bpm. No findings of acute STEMI with contralateral changes .[] Radiology/Procedures: Radiology/Procedures: [address] [address] IMAGING REPORT Signed PATIENT: KATHERINE SMITH ACCOUNT: [id number] : 1985 LOCATION: ER AGE: 34 SEX: F EXAM STATUS: REG ER ORD. PHYSICIAN: EDER GLASER MD REASON: pain PROCEDURE: PORTABLE CHEST 1V Study: CR PORTABLE CHEST 1V Indication: Chest pain. Comparison: 10/21/2019 Findings: The cardiomediastinal silhouette and rony are unremarkable. No pneumothorax, large effusion or lobar consolidation. Overall the aeration of the lungs has slightly improved from the comparison. Impression: No acute radiographic abnormality of the chest. Electronically signed by: SUSANA TOBIN MD (11/01/2019 12:22 AM) [id number] DICTATED AND SIGNED BY: SUSANA TOBIN MD DATE: 11/01/1921 CC: EDER GLASER MD; PCP,NO ~ [][address] [address] IMAGING REPORT Signed PATIENT: KATHERINE SMITH ACCOUNT: [id number] : 1985 LOCATION: ER AGE: 34 SEX: F EXAM STATUS: REG ER ORD. PHYSICIAN: EDER GLASER MD REASON: LBP, hx lumbar abscess, OMNI 300, 75ml PROCEDURE: CT LUMBAR SPINE W/CONTRAST Study: CT lumbar spine with contrast INDICATION: Low back pain. Findings at T11-T12 on a 10/23/2019 MRI concerning for infection. COMPARISON: CT lumbar spine 10/21/2019; MRI lumbar spine 10/23/2019 TECHNIQUE: Axial CT imaging of the lumbar spine performed without the use of intravenous contrast. One or more of the following individualized dose reduction techniques were utilized for this examination: 1. Automated exposure control 2. Adjustment of the mA and/or kV according to patient size 3. Use of iterative reconstruction technique. FINDINGS: Redemonstration of transitional lumbosacral anatomy with partial sacralization of L5. In keeping with prior numbering the last well-formed disc space is L5-S1. Unchanged degree of disc space narrowing, endplate eburnation and sclerosis at L4-L5. Unchanged superior endplate cystic change and surrounding sclerosis lateralized to the left at L4. Disc space narrowing at T11-T12 and a thin lucency at the anterior/superior corner of T12 and to a lesser degree at the anterior/inferior corner of T11. These findings are new from the CT abdomen/pelvis on 10/18/2019 but were not included in the [id number] on the 10/21/2019 exam. Anterior/inferior endplate sclerosis and endplate irregularity at T10 is unchanged from 10/18/2019. The posterior elements are unchanged as are the visualized sacroiliac joints. Prevertebral inflammation becoming most apparent at the T10-T11 disc space level, greatest at the T11-T12 disc space level, and continuing downward mainly to L1. Though assessment is limited, no definite spinal canal fluid collection is seen. Despite the administration of contrast is difficult to determine if there is a drainable fluid collection. Note is made that the extent of prevertebral and retroperitoneal inflammatory changes have significantly improved since 10/21/2019. Partially imaged left adnexal cystic focus was present on comparison exams. Inflammatory changes at the lower thoracic spine about the posterior margin of the aorta but do not encase the aorta. IMPRESSION: Prevertebral phlegmenous changes at T11-T12 and finding of discitis/osteomyelitis at this level which are known and were described on the 10/23/2019 MRI. No spinal canal fluid collection is seen and there is no CT evidence for a drainable paraspinous fluid collection. Though inflammatory changes persist at the lower thoracic spine, the extent of prevertebral and retroperitoneal inflammatory changes have significantly improved since the 10/21/2019 comparison. Electronically signed by: SUSANA TOBIN MD (11/01/2019 12:37 AM) [id number] DICTATED AND SIGNED BY: SUSANA TOBIN MD DATE: 11/01/19 0037 CC: EDER GLASER MD; PCP,NO ~ Course & Med Decision Making: Course & Med Decision Making Pertinent Labs and Imaging studies reviewed. (See chart for details) Discussed at length patient's presentation testing and treatment plan with Dr. ALVARADO. Advised patient to be transferred to [facility]. Discussed presentation testing and treatment plan with top distribution executive, accepts pt in transfer. Impression: 1. Spinal abscess/osteomyelitis T11-12 and L1 2. History of recent Sepsis /Sirs - (had 4/4bottle + for Gram + Bacteremia- Staphylococcus) Urine +E.Coli 3. Hx.IV heroin use 4. Elevated D-dimer 3.65 ( Inflammatory vs DVT vs.PE?) 5. Thrombocytopenia 457 6. Tobacco Use 7. Elevated LFT- AST 42,ALT 84, Alk.Phos 118 Covid pending- prior test negative [] Dragon Disclaimer: Dragon Disclaimer: This electronic medical record was generated, in whole or in part, using a voice recognition dictation system. Departure Departure: Disposition: 01 HOME/RESIDENCE PRIOR TO ADM Condition: STABLE Referrals: PCP,NO (PCP) Justification of Admission: Justification of Admission: Justification of Admission Dx: Yes Sepsis: Infection Comments: Osteomyelitis/abscess lumbar sacral Dragon Disclaimer This chart was dictated in whole or in part using Voice Recognition software in a busy, high-work load, and often noisy Emergency Department environment. It may contain unintended and wholly unrecognized errors or omissions. Dragon Disclaimer This chart was dictated in whole or in part using Voice Recognition software in a busy, high-work load, and often noisy Emergency Department environment. It may contain unintended and wholly unrecognized errors or omissions. EDER GLASER MD Oct 31, 2019 22:49
[2019-10-31] MEDS ORDERED: PIPERACILLIN/TAZOBACTAM 4.5 GM in IV NORMAL SALINE 50ML 50 ML IV ONE (23:00)
[2019-10-31] MEDS ORDERED: VANCOMYCIN 1 GM in IV NORMAL SALINE 250ML 250 ML IV ONE (23:00)
[2019-10-31] MEDS ORDERED: IV RINGERS SOLUTION,LACTATED 1,000 ML IV SCH (23:00)
[2019-10-31] MEDS ORDERED: IV NORMAL SALINE 250ML 250 ML ONE (23:26)
[2019-10-31] MEDS ORDERED: VANCOMYCIN 1 GM VIAL. ONE (23:26)
[2019-10-31] MEDS ORDERED: IV NORMAL SALINE 50ML 50 ML ONE ×2 (23:26→23:27)
[2019-10-31] MEDS ORDERED: PIPERACILLIN/TAZOBACTAM 4.5 GM VIAL IV ONE ×2 (23:26→23:27)
[2019-10-31] MEDS ORDERED: CONTRAST GIVEN. MC PRN (23:30)
[2019-10-31] MEDS ORDERED: IOHEXOL 300 MG/ML 75 ML VIAL. IV ONE (23:30)
[2019-10-31] MEDS ORDERED: MORPHINE SULFATE 10 MG/ML SYRINGE. SQ ONE (23:45)
[2019-10-31 23:47] LABS: BASO # 0.1 x10^3/uL (0.0-0.2); BASO % 1 % (0-3); EOS # 0.1 x10^3/uL (0.0-0.7); EOS % 1 % (0-3); HEMATOCRIT 38.7 % (36.0-47.0); HEMOGLOBIN 13.1 g/dL (12.0-15.5); LYMPH # 1.8 x10^3/uL (1.0-4.8); LYMPH % 18 % (24-48); MEAN CORPUSCULAR HEMOGLOBIN 30 pg (25-35); MEAN CORPUSCULAR HGB CONC 34 g/dL (31-37); MEAN CORPUSCULAR VOLUME 90 fL (79-100); MONO # 0.8 x10^3/uL (0.0-1.1); MONO % 8 % (0-9); NEUT # 7.3 x10^3uL (1.8-7.7); NEUT % 73 % (31-73); PLATELET COUNT 457 x10^3/uL (140-400); RED CELL DISTRIBUTION WIDTH 12.9 % (11.5-14.5)
[2019-10-31 23:50] LABS: BARBITURATES NEG (NEG); BENZODIAZEPINES NEG (NEG); CANNABINOIDS NEG (NEG); COCAINE NEG (NEG); METHADONE NEG (NEG); OPIATES POS (NEG); PHENCYCLIDINE NEG (NEG)
[2019-10-31 23:52] LABS: AMPHETAMINE/METHAMPHETAMINE NEG (NEG)
[2019-11-01] MEDS ORDERED: fentaNYL 50MCG/HR 1 PATCH PATCH TD ONE
[2019-11-01 00:03] LABS: GFR 63.1; POTASSIUM 3.7 mmol/L (3.5-5.1)
[2019-11-01 00:12] LABS: ALBUMIN 3.4 g/dL (3.4-5.0); DIRECT BILIRUBIN 0.2 mg/dL (0.0-0.2); MAGNESIUM 2.1 mg/dL (1.8-2.4); TOTAL BILIRUBIN 0.5 mg/dL (0.2-1.0); TOTAL PROTEIN 9.3 g/dL (6.4-8.2)
--- NOTE | 2019-11-01 00:25 | RAD ---
Study: CR PORTABLE CHEST 1V Indication: Chest pain. Comparison: 10/21/2019 Findings: The cardiomediastinal silhouette and rony are unremarkable. No pneumothorax, large effusion or lobar consolidation. Overall the aeration of the lungs has slightly improved from the comparison. Impression: No acute radiographic abnormality of the chest. Electronically signed by: SUSANA TOBIN MD (11/01/2019 12:22 AM) [id number]
--- NOTE | 2019-11-01 00:31 | EKG ---
[address] [address] Test Date: 2019-10-31 Test Time: 23:32:09 Pat Name: KATHERINE SMITH Department: Room: Gender: F Physician Office Rep: : 1985 Requested By: EDER GLASER Order Number: [id number] Reading MD: Measurements Intervals [place] Rate: 90 P: 58 [place]: 150 QRS: 75 QRSD: 94 T: 35 QT: 358 QTc: 442 Interpretive Statements SINUS RHYTHM NORMAL ECG RI6.02 No previous ECG available for comparison
--- NOTE | 2019-11-01 00:40 | RAD ---
Study: CT lumbar spine with contrast INDICATION: Low back pain. Findings at T11-T12 on a 10/23/2019 MRI concerning for infection. COMPARISON: CT lumbar spine 10/21/2019; MRI lumbar spine 10/23/2019 TECHNIQUE: Axial CT imaging of the lumbar spine performed without the use of intravenous contrast. One or more of the following individualized dose reduction techniques were utilized for this examination: 1. Automated exposure control 2. Adjustment of the mA and/or kV according to patient size 3. Use of iterative reconstruction technique. FINDINGS: Redemonstration of transitional lumbosacral anatomy with partial sacralization of L5. In keeping with prior numbering the last well-formed disc space is L5-S1. Unchanged degree of disc space narrowing, endplate eburnation and sclerosis at L4-L5. Unchanged superior endplate cystic change and surrounding sclerosis lateralized to the left at L4. Disc space narrowing at T11-T12 and a thin lucency at the anterior/superior corner of T12 and to a lesser degree at the anterior/inferior corner of T11. These findings are new from the CT abdomen/pelvis on 10/18/2019 but were not included in the [id number] on the 10/21/2019 exam. Anterior/inferior endplate sclerosis and endplate irregularity at T10 is unchanged from 10/18/2019. The posterior elements are unchanged as are the visualized sacroiliac joints. Prevertebral inflammation becoming most apparent at the T10-T11 disc space level, greatest at the T11-T12 disc space level, and continuing downward mainly to L1. Though assessment is limited, no definite spinal canal fluid collection is seen. Despite the administration of contrast is difficult to determine if there is a drainable fluid collection. Note is made that the extent of prevertebral and retroperitoneal inflammatory changes have significantly improved since 10/21/2019. Partially imaged left adnexal cystic focus was present on comparison exams. Inflammatory changes at the lower thoracic spine about the posterior margin of the aorta but do not encase the aorta. IMPRESSION: Prevertebral phlegmenous changes at T11-T12 and finding of discitis/osteomyelitis at this level which are known and were described on the 10/23/2019 MRI. No spinal canal fluid collection is seen and there is no CT evidence for a drainable paraspinous fluid collection. Though inflammatory changes persist at the lower thoracic spine, the extent of prevertebral and retroperitoneal inflammatory changes have significantly improved since the 10/21/2019 comparison. Electronically signed by: SUSANA TOBIN MD (11/01/2019 12:37 AM) [id number]
[2019-11-01 00:54] LABS: BILIRUBIN,URINE NEG (NEG); CLARITY,URINE CLOUDY; COLOR,URINE YELLOW; GLUCOSE,URINE NEG (NEG)
[2019-11-01 00:55] LABS: BACTERIA,URINE 0 /HPF (0-FEW); NITRITE,URINE NEG (NEG); SQUAMOUS EPITHELIAL CELL,UR FEW /LPF; UROBILINOGEN,URINE 0.2 mg/dL (0.2 mg/dL)
[2019-11-01 04:15] VITALS: BP 123/78
[2019-11-01] MEDS ORDERED: HEPARIN for SUB-Q USE 5,000 UNIT/ML VIAL. SQ ONE (04:15)
[2019-11-03 21:09] LABS: HCV ULTRA QUANT PCR HCV Not Detected IU/mL (.)
== END 2019-11-01 05:10 | disposition short-term general hospital (02) ==
LOC: ER 22:34
DX: M54.5 Low back pain (principal); M53.3 Sacrococcygeal disorders, not elsewhere classified; R79.1 Abnormal coagulation profile; D69.6 Thrombocytopenia, unspecified; R74.8 Abnormal levels of other serum enzymes; M19.90 Unspecified osteoarthritis, unspecified site; Z20.828 Contact with and (suspected) exposure to other viral communicable diseases; F17.210 Nicotine dependence, cigarettes, uncomplicated; Z87.440 Personal history of urinary (tract) infections; Z88.8 Allergy status to other drugs, medicaments and biological substances
CPT/HCPCS: 36415; 71045; 72132; 80048; 80076; 80307; 81001; 81025; 82550; 83605; 83690; 83735; 83880; 84443; 84484; 84702; 85025; 85379; 85610; 85730; 86705; 86709; 86803; 87040; 87340; 87522; 93005; 96365; 96368; 96372; 99285; J1644; J2270; J2543; J3370; J3490; J7050; J7120; Q9967; U0003